=== PATIENT | female | born 1945 | race Caucasian/White ===

== ENCOUNTER 2019-11-12 | Emergency (ER) | payer MEDICARE ==
[~2019-11-12] MED LIST: AMOX/K CLAV875 M1 PO; ENALAPRIL20 MG PO; HYDROCHLORO25 MG/TAB PO; KEFLEX500 M1 PO; NAPROSYN500 MG PO; SIMVASTATIN40 MG PO
[2019-11-12] MEDS ORDERED: ASPIRIN325 MG PO (11:56)
[2019-11-12] MEDS ORDERED: [UNRECOGNIZED DRUG - OTHER] PO (11:57)
[2019-11-12] MEDS ORDERED: TAMOXIFEN CITRA10 MG PO (11:58)
[2019-11-12] MEDS ORDERED: [UNRECOGNIZED DRUG - OTHER] (11:58)
[2019-11-12] MEDS ORDERED: MEDDOSEPAK PO (12:41)
[2019-11-12] MEDS ORDERED: TRAMADOL HYDROC50 M1 PO (12:41)
== END 2019-11-12 13:10 | disposition home or self-care (01) ==
DX: M17.11 Unilateral primary osteoarthritis, right knee (principal); I10 Essential (primary) hypertension

== ENCOUNTER 2019-12-26 | Emergency (ER) | payer MEDICARE ==
[~2019-12-26] MED LIST changes: +ASPIRIN325 MG PO; +MEDDOSEPAK PO; +TAMOXIFEN CITRA10 MG PO; +TRAMADOL HYDROC50 M1 PO; +[UNRECOGNIZED DRUG - OTHER]; +[UNRECOGNIZED DRUG - OTHER] PO
[2019-12-26] MEDS ORDERED: MEDDOSEPAK PO (11:42)
== END 2019-12-26 11:52 | disposition home or self-care (01) ==
DX: M19.072 Primary osteoarthritis, left ankle and foot (principal); M19.071 Primary osteoarthritis, right ankle and foot; I10 Essential (primary) hypertension

== ENCOUNTER 2020-09-26 11:11 | Emergency (ER) | payer MEDICARE ==
[~2020-09-26] VITALS: Ht 160 cm; Wt 92.5 kg
[2020-09-26] MEDS ORDERED: HYDROCHLOROT12.5 M1 PO (11:41)
[2020-09-26] MEDS ORDERED: MEDDOSEPAK PO (13:16)
[2020-09-26 13:25] VITALS: BP 139/74
== END 2020-09-26 13:25 | disposition home or self-care (01) ==
LOC: ED 11:11
DX: M19.071 Primary osteoarthritis, right ankle and foot (principal); I10 Essential (primary) hypertension; M10.9 Gout, unspecified

== ENCOUNTER 2020-12-24 10:53 | Emergency (ER) | payer MEDICARE ==
[~2020-12-24] VITALS: Ht 160 cm; Wt 92.7 kg
[~2020-12-24 10:53] MED LIST changes: +HYDROCHLOROT12.5 M1 PO
[2020-12-24 12:30] VITALS: BP 154/88
== END 2020-12-24 12:48 | disposition home or self-care (01) ==
LOC: ED 10:53
DX: M79.651 Pain in right thigh (principal); I10 Essential (primary) hypertension; E78.00 Pure hypercholesterolemia, unspecified; M10.9 Gout, unspecified

== ENCOUNTER 2021-10-30 11:31 | Emergency (ER) | payer MEDICARE ==
[~2021-10-30] VITALS: Ht 160 cm; Wt 94.8 kg
[2021-10-30] MEDS ORDERED: COLCHICINE0.6 M2 PO (13:43)
[2021-10-30] MEDS ORDERED: FEMARA2.5 M1 PO (13:49)
[2021-10-30] MEDS ORDERED: CLOTRIM/BET1 EX (13:51)
[2021-10-30 14:02] VITALS: BP 194/86
== END 2021-10-30 14:03 | disposition home or self-care (01) ==
LOC: ED 11:31
DX: M25.531 Pain in right wrist (principal); I10 Essential (primary) hypertension; E78.00 Pure hypercholesterolemia, unspecified; M10.9 Gout, unspecified; Z85.3 Personal history of malignant neoplasm of breast